=== PATIENT | male | born 1955 ===

== ENCOUNTER 2017-09-12 10:38 | Day surgery (SDC) | payer BC ==
[2017-09-04 13:17] VITALS: BMI 29.5
[2017-09-12] MEDS ORDERED: Propofol 10 mg/ml Inj (20 ML) ONE ×2 (10:55→13:33)
[2017-09-12] MEDS ORDERED: Sodium Chloride 0.9% 1,000 ML IV SCH (11:00)
[2017-09-12 11:33] VITALS: RESP 14
[2017-09-12 14:23] VITALS: O2SAT 96
[2017-09-12 14:40] VITALS: BP 136/80; PULSE 84; TEMP 98.2
== END 2017-09-12 15:11 | disposition home or self-care (01) ==
LOC: ENDO 10:38
PROVIDERS: ATTEND Internal Medicine Gastroenterology
DX: D12.3 Benign neoplasm of transverse colon (principal); K57.30 Diverticulosis of large intestine without perforation or abscess without bleeding; K64.8 Other hemorrhoids; K76.6 Portal hypertension; K31.89 Other diseases of stomach and duodenum; K20.9 Esophagitis, unspecified; J44.9 Chronic obstructive pulmonary disease, unspecified; I10 Essential (primary) hypertension
CPT/HCPCS: 45381; 45385; 88305; 88312; 88342; J2001; J2704; J7040 ×2

== ENCOUNTER 2018-10-18 10:59 | Day surgery (SDC) | payer BC ==
[2018-10-09 10:49] VITALS: BMI 29.5
[2018-10-18] MEDS ORDERED: Flumazenil 0.1 mg/ml Inj (5ml) IVP ONE (12:42)
[2018-10-18] MEDS ORDERED: Naloxone 0.4 mg/ml Inj (Adult) ONE (12:42)
[2018-10-18] MEDS ORDERED: Midazolam 2 MG/2 ML VIAL ONE (12:42)
[2018-10-18] MEDS ORDERED: Midazolam 2 MG/2 ML VIAL IV ONE ×3 (12:58→13:03)
[2018-10-18 13:38] VITALS: RESP 16
[2018-10-18] MEDS ORDERED: Sodium Chloride 0.9% 1,000 ML IV SCH (13:45)
[2018-10-18 14:45] VITALS: BP 130/80; PULSE 85; TEMP 98.7; O2SAT 96
--- NOTE | 2018-10-18 16:17 | CARD ---
APPROVED REPORT Date of service: 10/18/2018 EXAM: Transesophageal echocardiogram with color flow Doppler. INDICATION SEVERE MITRAL REGURGE LEFT VENTRICLE The left ventricle is normal size. There is mild left ventricular hypertrophy. Left ventricle systolic function is mildly impaired.EF-45-50% There is normal LV segmental wall motion. The left ventricular diastolic function is normal. No left ventricle thrombus noted on this study. There is no ventricular septal defect visualized. There is no left ventricular aneurysm. There is no mass noted in the left ventricle. RIGHT VENTRICLE The right ventricle is normal size. There is normal right ventricular wall thickness. The right ventricular systolic function is normal. ATRIA The left atrium is mildly dilated. The right atrium size is normal. The interatrial septum is intact with no evidence for an atrial septal defect. AORTIC VALVE The aortic valve is mildly thickened. There is moderate aortic regurgitation. There is no aortic valvular stenosis. There is no aortic valvular vegetation. MITRAL VALVE The mitral valve leaflets are thickened. There is a Partial a flail posterior leaflet. There is no mitral valve stenosis. 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 Mitral regurgitation is severe, Multiple jets( Moderate Ecentric Jet directed and wrap around anterior leaflet and two Mild to Moderate central jets). TRICUSPID VALVE The tricuspid valve is normal in structure. There is trace to mild tricuspid regurgitation. There is no tricuspid valve prolapse or vegetation. There is no tricuspid valve stenosis. PULMONIC VALVE The pulmonary valve is normal in structure. There is no pulmonic valvular regurgitation. There is no pulmonic valvular stenosis. GREAT VESSELS The aortic root is normal in size. The ascending aorta is normal in size. The pulmonary artery is normal. The IVC is normal in size and collapses >50% with inspiration. PERICARDIAL EFFUSION There is no pericardial effusion. There is no pleural effusion. <Conclusion> The left ventricle is normal size. There is mild left ventricular hypertrophy. Left ventricle systolic function is mildly impaired.EF-45-50% There is moderate aortic regurgitation. There is a Partial a flail posterior leaflet. 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 Mitral regurgitation is severe, Multiple jets( Moderate Ecentric Jet directed and wrap around anterior leaflet and two Mild to Moderate central jets). There is trace to mild tricuspid regurgitation. The IVC is normal in size and collapses >50% with inspiration. There is no pleural effusion. Intact intra atrial septuum by color flow and bubble study. Velocity in GREG >0.4 m/s. Mild Flat plaque john descending aorta noted. Consider MV repair. CC; Drs. Perez/ Miki
== END 2018-10-18 15:30 | disposition home or self-care (01) ==
LOC: TEE 10:59 → EDSTATUS 11:00 → TEE 15:30
PROVIDERS: ATTEND Internal Medicine Cardiovascular Disease
DX: I08.0 Rheumatic disorders of both mitral and aortic valves (principal); I10 Essential (primary) hypertension; I25.10 Atherosclerotic heart disease of native coronary artery without angina pectoris
CPT/HCPCS: 93312; J2250; J3010; J7030